=== PATIENT | male | born 2000 | race African-American/Black ===

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

== ENCOUNTER 2023-06-15 20:53 | Emergency (ER) | payer BC, OTHER ==
[~2023-06-15] VITALS: Ht 170.2 cm; Wt 66.8 kg
[~2023-06-15 20:53] MED LIST: HYDR-500 GT
[2023-06-15] MEDS ORDERED: LIDOCAINE VISCUS 2% 15 ML UDC MM ONE (21:45)
[2023-06-15] MEDS ORDERED: LIDOCAINE 2% (GLYDO= UROJET) 10 ML JELLY MM ONE ×2 (22:01→22:15)
[2023-06-15 22:35] VITALS: BP 135/75; TEMP 98.4; O2SAT 97
== END 2023-06-15 22:05 | disposition home or self-care (01) ==
LOC: ER 20:53 → EDBD 20:53 → MERGE 20:53 → ER 22:05
DX: T17.228A Food in pharynx causing other injury, initial encounter (principal); X58.XXXA Exposure to other specified factors, initial encounter; Y93.89 Activity, other specified; Y92.89 Other specified places as the place of occurrence of the external cause; Y99.8 Other external cause status
CPT/HCPCS: 70360; A4663

== ENCOUNTER 2024-07-10 10:59 | Emergency (ER) | payer BC, MEDICAID ==
[~2024-07-10] VITALS: Ht 182.9 cm; Wt 77.1 kg
--- NOTE | 2024-07-10 11:18 | NUR ---
Left finger cleaned no visble injury noted after removing mom's dressing
--- NOTE | 2024-07-10 11:33 | NUR ---
Very small healig lac found with spot light. Area cleaned and steri-strips applied and re-evaluated by Dr Tapia. SONNY edmondson and pt advised to keep clean and dry for the next 5 days. Encouraged to return if needed
[2024-07-10 11:35] VITALS: BP 136/85; O2SAT 97
== END 2024-07-10 11:35 | disposition home or self-care (01) ==
LOC: ER 10:59
DX: S61.211A Laceration without foreign body of left index finger without damage to nail, initial encounter (principal); G80.9 Cerebral palsy, unspecified; Z79.891 Long term (current) use of opiate analgesic; W45.8XXA Other foreign body or object entering through skin, initial encounter; Y93.89 Activity, other specified; Y92.89 Other specified places as the place of occurrence of the external cause; Y99.8 Other external cause status
CPT/HCPCS: A4606; A4663